=== PATIENT | male | born 1945 | race Hispanic/Latino ===

== ENCOUNTER → 2023-01-02 | Day surgery (SDC) | payer MEDICARE, OTHER ==
[2023-01-01 13:09] LABS: BASOPHILS % 0.3 % (0.0-1.0); EOSINOPHILS # (AUTO) 0.2 (0.0-0.4); EOSINOPHILS % 2.9 % (0.0-6.0); HEMATOCRIT 41.8 % (38.2-49.6); HEMOGLOBIN 13.9 g/dL (14.0-18.0); LYMPHOCYTES # (AUTO) 1.9 (1.0-3.2); LYMPHOCYTES % 26.9 % (18.0-39.1); MEAN CORPUSCULAR HEMOGLOBIN 32.4 pg (28-32); MEAN CORPUSCULAR HGB CONC 33.3 g/dL (31-35); MEAN CORPUSCULAR VOLUME 97.4 fL (81-99); MONOCYTES # (AUTO) 1.1 (0.2-0.8); MONOCYTES % 14.7 % (4.4-11.3); NEUTROPHILS # (AUTO) 3.9 (2.1-6.9); NEUTROPHILS % 54.5 % (38.7-80.0); PLATELET COUNT 248 x10e3/uL (140-360); RED BLOOD COUNT 4.29 x10e6/uL (4.3-5.7); RED CELL DISTRIBUTION WIDTH 14.6 % (11.7-14.4)
[2023-01-01 13:30] LABS: ANION GAP 14.1 mmol/L (8-16); CALCIUM 9.3 mg/dL (8.4-10.2); CREATININE, SERUM 0.75 mg/dL (0.72-1.25); POTASSIUM 4.1 mmol/L (3.5-5.1)
[~2023-01-02] MED LIST: BUPIVACAINE 0.5%/EPI 30 ML SDV INJ ONE; CLINDAMYCIN HC150 MG PO; FENTANYL CITRATE/PF 100MCG/2 ML INJ ONE; GLYCOPYRROLATE INJ 0.2 MG/ML VIAL ONE; LACTATED RINGER'S 1,000 ML ONE; LIDOCAINE HCL 2% LOCAL INJ 5 ML SDV VIAL INJ ONE; LIDOCAINE JELLY 2% 10ML URO-JET ONE; METOCLOPRAMIDE HCL 10 MG/2ML VIAL ONE; MIDAZOLAM HCL 2 MG/2 ML VIAL ONE; NEOSTIGMINE 1 MG/ML 10ML VIAL ONE; POVIDONE IODINE 0.05% 0.05 % ML PO ONE; PROPOFOL IV EMULSION 10 MG/ML 20 ML VIAL ONE; SEVOFLURANE INHAL SOLN 250 ML PEN BTL ONE; [UNRECOGNIZED DRUG - CODE] PO
[2023-01-02 13:27] VITALS: BP 147/83; PULSE 72; RESP 18; O2SAT 95
== END | disposition home or self-care (01) ==
LOC: OR 09:39
PROVIDERS: ATTEND Surgery
DX: K61.1 Rectal abscess (principal); Z01.810 Encounter for preprocedural cardiovascular examination; Z01.812 Encounter for preprocedural laboratory examination; Z01.818 Encounter for other preprocedural examination
CPT/HCPCS: 36415; 46270; 71046; 80048; 85025; 93005; J2001; J2250; J2704; J2710; J2765; J3010; J7121

== ENCOUNTER 2024-07-25 14:07 | Inpatient (IN) | payer MEDICARE ==
[~2024-07-25] VITALS: Ht 170.2 cm; Wt 95.3 kg
[2024-07-25] VITALS (7 sets, daily range): BP systolic 117–124; BP diastolic 60–64; PULSE 75–79; RESP 14–18; TEMP 98.6–99.1; O2SAT 96–97
[~2024-07-25 14:07] MED LIST changes: -BUPIVACAINE 0.5%/EPI 30 ML SDV INJ ONE; -FENTANYL CITRATE/PF 100MCG/2 ML INJ ONE; -GLYCOPYRROLATE INJ 0.2 MG/ML VIAL ONE; -LACTATED RINGER'S 1,000 ML ONE; -LIDOCAINE HCL 2% LOCAL INJ 5 ML SDV VIAL INJ ONE; -LIDOCAINE JELLY 2% 10ML URO-JET ONE; -METOCLOPRAMIDE HCL 10 MG/2ML VIAL ONE; -MIDAZOLAM HCL 2 MG/2 ML VIAL ONE; -NEOSTIGMINE 1 MG/ML 10ML VIAL ONE; -POVIDONE IODINE 0.05% 0.05 % ML PO ONE; -PROPOFOL IV EMULSION 10 MG/ML 20 ML VIAL ONE; -SEVOFLURANE INHAL SOLN 250 ML PEN BTL ONE
[2024-07-25 15:07] LABS: BASOPHILS % 0.2 % (0.0-1.0); EOSINOPHILS # (AUTO) 0.1 (0.0-0.4); EOSINOPHILS % 0.4 % (0.0-6.0); HEMATOCRIT 40.3 % (38.2-49.6); HEMOGLOBIN 12.9 g/dL (14.0-18.0); LYMPHOCYTES # (AUTO) 2.1 (1.0-3.2); LYMPHOCYTES % 15.1 % (18.0-39.1); MEAN CORPUSCULAR HEMOGLOBIN 32.7 pg (28-32); MONOCYTES % 14.3 % (4.4-11.3); NEUTROPHILS # (AUTO) 9.7 (2.1-6.9); NEUTROPHILS % 69.3 % (38.7-80.0); PLATELET COUNT 196 x10e3/uL (140-360); RED BLOOD COUNT 3.95 x10e6/uL (4.3-5.7); WHITE BLOOD COUNT 14.03 x10e3/uL (4.8-10.8)
[2024-07-25 15:22] LABS: ALANINE AMINOTRANSFERASE 17 IU/L (0-55); ALBUMIN 2.9 g/dL (3.5-5.0); ALBUMIN/GLOBULIN RATIO 0.9 (0.8-2.0); ALKALINE PHOSPHATASE 65 IU/L (40-150); ANION GAP 14.7 mmol/L (8-16); BILIRUBIN,TOTAL 1.5 mg/dL (0.2-1.2); BLOOD UREA NITROGEN 9 mg/dL (7-26); BUN/CREATININE RATIO 13 (6-25); CALCIUM 9.3 mg/dL (8.4-10.2); CARBON DIOXIDE 25 mmol/L (22-29); CHLORIDE 98 mmol/L (98-107); CREATININE, SERUM 0.72 mg/dL (0.72-1.25); EST GLOMERULAR FILTRATION RATE 94 ML/MIN (>=60); GLUCOSE 94 mg/dL (74-118); POTASSIUM 3.7 mmol/L (3.5-5.1); SODIUM 134 mmol/L (136-145); TOTAL PROTEIN 6.3 g/dL (6.5-8.1)
[2024-07-25 15:28] LABS: LIPASE < 4 U/L (8-78); TROPONIN I 0.035 ng/mL (0-0.300)
[2024-07-25] MEDS ORDERED: IOPAMIDOL 370 MG/ML 100 ML INFUS..BTL INJ ONE (15:30)
[2024-07-25 17:12] LABS: CLARITY,URINE CLEAR (CLEAR); COLOR,URINE YELLOW (YELLOW); LEUKOCYTE ESTERASE ,URINE NEGATIVE (NEGATIVE); NITRITE,URINE NEGATIVE (NEGATIVE); PH,URINE >=9 (5 - 7)
[2024-07-25 17:13] LABS: BILIRUBIN,URINE NEGATIVE (NEGATIVE); GLUCOSE, URINE NEGATIVE (NEGATIVE); KETONES,URINE 1+ (NEGATIVE); PROTEIN,URINE DIPSTICK 1+ (NEGATIVE)
[2024-07-25] MEDS ORDERED: ONDANSETRON HCL INJ 2MG/ML 2ML 2 MG/ML VIAL IV PRN (17:15)
[2024-07-25] MEDS: SODIUM CHLORIDE 0.9% 1000ML 1,000 ML IV SCH (17:41)
[2024-07-25] MEDS ORDERED: METOPROLOL TART50 MG PO (22:45)
[2024-07-25] MEDS ORDERED: FLOMAX0.4 MG PO (22:45)
[2024-07-25] MEDS ORDERED: ELIQUIS5 MG PO (22:48)
[2024-07-26 01:35] VITALS: BP 116/67; PULSE 76; RESP 18; TEMP 98.2; O2SAT 94
[2024-07-26 05:31] VITALS: BP 121/63; PULSE 74; RESP 18; TEMP 98.6; O2SAT 97
[2024-07-26 08:12] VITALS: BP 118/72; PULSE 73; RESP 20; TEMP 98; O2SAT 95
[2024-07-26 12:33] VITALS: BP 146/80; PULSE 70; RESP 19; TEMP 98.4; O2SAT 99
[2024-07-26 16:42] VITALS: BP 141/81; PULSE 79; RESP 20; TEMP 98.1; O2SAT 96
[2024-07-26 20:00] VITALS: BP_SYST 123; BP_SYST 152; BP_DIAS 55; BP_DIAS 84; PULSE 58; PULSE 73; PULSE 76; RESP 18; TEMP 98.5; O2SAT 95; O2SAT 99
[2024-07-27] VITALS (7 sets, daily range): BP systolic 124–164; BP diastolic 60–93; PULSE 68–96; RESP 18–20; TEMP 97.9–99.9; O2SAT 95–99
[2024-07-27] MEDS ORDERED: LIDOCAINE HCL 2% LOCAL INJ 5 ML SDV VIAL INJ ONE (12:31)
[2024-07-27] MEDS ORDERED: DEXAMETHASONE SOD PHOS INJ 4 MG/ML SDV ONE (12:31)
[2024-07-27] MEDS ORDERED: FENTANYL CITRATE/PF 100MCG/2 ML INJ ONE ×2 (12:31)
[2024-07-27] MEDS ORDERED: PROPOFOL IV EMULSION 10 MG/ML 20 ML VIAL ONE (12:31)
[2024-07-27] MEDS ORDERED: ROCURONIUM BROMIDE 1 ML IV ONE (12:31)
[2024-07-27] MEDS ORDERED: MIDAZOLAM HCL 2 MG/2 ML VIAL ONE (12:31)
[2024-07-27] MEDS ORDERED: SUGAMMADEX SODIUM 200 MG/2 ML VIAL IV ONE (13:01)
[2024-07-27] MEDS ORDERED: ACETAMINOPHEN 1000 MG/100 ML 100 ML IV ONE (15:25)
[2024-07-27] MEDS ORDERED: EPHEDRINE SULFATE INJ 50 MG/ML VIAL ONE (15:41)
[2024-07-27] MEDS ORDERED: LABETALOL HCL 0 ML ONE (15:53)
[2024-07-27] MEDS: SODIUM CHLORIDE 0.9% 1000ML 1,000 ML IV SCH (16:15)
[2024-07-27] MEDS ORDERED: ACETAMINOPHEN 1000 MG/100 ML IV PRN (16:15)
[2024-07-27] MEDS: FENTANYL CITRATE/PF 100MCG/2 ML INJ ONE (16:25)
[2024-07-27] MEDS: METOPROLOL TARTRATE 25 MG TAB PO SCH (17:57)
[2024-07-28] VITALS: BP 151/79; PULSE 63; RESP 18; TEMP 98.3; O2SAT 99
[2024-07-28 04:00] VITALS: BP 169/87; PULSE 68; RESP 18; TEMP 98.1; O2SAT 98
[2024-07-28 05:40] LABS: BASOPHILS % 0.1 % (0.0-1.0); HEMATOCRIT 36.5 % (38.2-49.6); HEMOGLOBIN 11.6 g/dL (14.0-18.0); LYMPHOCYTES # (AUTO) 0.7 (1.0-3.2); LYMPHOCYTES % 6.6 % (18.0-39.1); MEAN CORPUSCULAR HEMOGLOBIN 32.8 pg (28-32); MEAN CORPUSCULAR HGB CONC 31.8 g/dL (31-35); MEAN CORPUSCULAR VOLUME 103.1 fL (81-99); MONOCYTES # (AUTO) 0.9 (0.2-0.8); MONOCYTES % 8.3 % (4.4-11.3); NEUTROPHILS # (AUTO) 8.6 (2.1-6.9); NEUTROPHILS % 84.5 % (38.7-80.0); PLATELET COUNT 180 x10e3/uL (140-360); RED BLOOD COUNT 3.54 x10e6/uL (4.3-5.7); RED CELL DISTRIBUTION WIDTH 13.2 % (11.7-14.4); WHITE BLOOD COUNT 10.23 x10e3/uL (4.8-10.8)
[2024-07-28 05:54] LABS: ANION GAP 14.7 mmol/L (8-16); CALCIUM 8.6 mg/dL (8.4-10.2); CREATININE, SERUM 0.66 mg/dL (0.72-1.25); POTASSIUM 3.7 mmol/L (3.5-5.1)
[2024-07-28 07:58] VITALS: BP 156/84; PULSE 72; RESP 20; TEMP 98.5; O2SAT 97
[2024-07-28 08:00] VITALS: BP 156/84; PULSE 72; RESP 20; TEMP 98.5; O2SAT 97
[2024-07-28] MEDS: TAMSULOSIN HCL 0.4 MG CAP PO SCH (10:57)
[2024-07-28 11:15] VITALS: BP 149/88; PULSE 70; RESP 20; TEMP 98.9; O2SAT 98
[2024-07-28 16:13] VITALS: BP 146/80; PULSE 79; RESP 16; TEMP 97.9; O2SAT 98
[2024-07-28] MEDS ORDERED: KEFLEX125 MG/5 M PO (17:17)
[2024-07-28] MEDS ORDERED: keflex PO (17:19)
== END 2024-07-28 17:35 | disposition home or self-care (01) | DRG 399 ==
LOC: ER 14:34 → ERHOLD 17:05 → UNDODISIN 18:22 → MED/SURG2 18:28
PROVIDERS: ADMIT Internal Medicine; ATTEND Internal Medicine
PROC: 0DTJ4ZZ Resection of Appendix, Percutaneous Endoscopic Approach (ICD-10-PCS; principal; 2024-07-27 15:14)
DX: K35.80 Unspecified acute appendicitis (principal); I10 Essential (primary) hypertension; N40.0 Benign prostatic hyperplasia without lower urinary tract symptoms; I48.91 Unspecified atrial fibrillation; Z79.01 Long term (current) use of anticoagulants
CPT/HCPCS: 36415; 71045; 74177; 80048; 80053; 81001; 83605; 83690; 84484; 85025; 87040; 88304; 93005; 94799; 96361; 99284; C1766; J1100; J2003; J2250; J2543; J7030; Q9967